=== PATIENT | female | born 1980 | race Caucasian/White ===

== ENCOUNTER 2019-10-25 20:07 | Emergency (ER) | payer SELFPAY ==
[~2019-10-25] VITALS: Ht 162.6 cm; Wt 77.6 kg
[2019-10-25 20:25] VITALS: BP 119/66
--- NOTE | 2019-10-25 20:38 | NUR ---
42 YO F BIBA FOR C/C OF SYNCOPE AFTER HAVING LOW BP. PT PRESENTS WITH STABLE VS. BP IS 119/69. 99% ON ROOM AIR. PT STATES SHE WAS FASTING AND BELIEVES THATS WHY SHE FAINTED. DENIES TAKING OTC MEDS. SAFETY MEASURES IN PLACE. BED LOCKED AND IN LOWEST POSITION. NKA NO MED HX NO RX
[2019-10-25 20:59] VITALS: BP 119/66
--- NOTE | 2019-10-25 20:59 | NUR ---
Patient discharged with v/s stable. Written and verbal after care instructions given and explained. Patient verbalized understanding. Ambulatory with steady gait. All questions addressed prior to discharge. Advised to follow up with PMD.
== END 2019-10-25 20:59 | disposition home or self-care (01) ==
LOC: EDBD 20:07 → MED 20:07
DX: R55 Syncope and collapse (principal); R42 Dizziness and giddiness; M54.9 Dorsalgia, unspecified
CPT/HCPCS: 99283